=== PATIENT | male | born 1980 | race Hispanic/Latino ===

== ENCOUNTER 2021-08-20 22:35 | Emergency (ER) | payer SELFPAY ==
--- NOTE | 2021-08-20 23:32 | XRay Report ---
LEFT FOOT, 3 VIEWS INDICATION / CLINICAL INFORMATION: left foot injury. COMPARISON: None available. FINDINGS: Is focal soft tissue swelling throughout the dorsum of the foot. I do not see evidence of acute fract ure or dislocation. Degenerative changes are seen throughout the foot. Pes planus is present. IMPRESSION: 1. No acute fracture or dislocation. Dorsal soft tissue swelling. 2. Pes planus. Signer Name: Soraida Rolon MD Signed: 08/20/2021 11:28 PM Workstation Name: [id number]
[2021-08-21] MEDS ORDERED: IBUPROFEN 600 MG TAB PO ONE (02:38)
--- NOTE | 2021-08-21 02:39 | Emergency Department Report ---
ED Lower Extremity HPI - General Chief Complaint: Extremity Injury, Lower Stated Complaint: TOE PAIN Time Seen by Provider: 08/21/21 02:16 Source: patient Mode of arrival: Ambulatory Limitations: No Limitations - History of Present Illness Initial Comments: 41-year-old male was brought to the ER via EMS today with complaints of left foot injury. Patient states that just prior to arrival he was at [facility] on one of the electrical cart. He states that while driving down the aisle, there was a pallet that restricted the size of the aisle but he still tried to go through, he states that his foot got wedged between the electrical cart and the pallet of water. He states that to try to dislodge his foot, he pulled a few times but was unsuccessful and so he then reversed the cart and while doing that he "bent" his left foot. Since then he has been having pain mainly to the dorsal aspect of the foot. He reports associated swelling. He reports no other symptoms at this time. MD Complaint: foot injury -: hour(s) (2) - Related Data Previous Rx's Medication Instructions Recorded Last Taken Type Cyclobenzaprine [Flexeril 10mg] 10 mg PO TID PRN #30 tablet 12/13/13 Unknown Rx HYDROcodone/ACETAMINOPHEN [[place] 1 each PO Q6HR #20 tablet 12/13/13 Unknown Rx 5/325 Tablet] Ibuprofen [Motrin] 600 mg PO Q8H PRN #60 tablet 12/13/13 Unknown Rx Cyclobenzaprine HCl [Flexeril 5 MG 5 mg PO Q8HR PRN #15 tablet 06/23/15 Unknown Rx TAB] traMADoL [Ultram 50 MG tab] 50 mg PO Q6HR PRN #15 tablet 06/23/15 Unknown Rx Ibuprofen [Motrin 800 MG tab] 800 mg PO Q8HR PRN #30 tablet 08/21/21 Unknown Rx Allergies Allergy/AdvReac Type Severity Reaction Status Date / Time seafood Allergy Vomiting Uncoded 12/13/13 03:02 ED Review of Systems ROS: Stated complaint: TOE PAIN Other details as noted in HPI Comment: All other systems reviewed and negative Musculoskeletal: joint swelling, arthralgia ED Past Medical Hx - Past Medical History Previous Medical History?: No - Surgical History Past Surgical History?: Yes Additional Surgical History: hernia repair - Social History Smoking Status: Current Every Day Smoker Substance Use Type: None - Medications Home Medications: Home Medications Medication Instructions Recorded Confirmed Last Taken Type Cyclobenzaprine [Flexeril 10mg] 10 mg PO TID PRN #30 tablet 12/13/13 Unknown Rx HYDROcodone/ACETAMINOPHEN [[place] 1 each PO Q6HR #20 tablet 12/13/13 Unknown Rx 5/325 Tablet] Ibuprofen [Motrin] 600 mg PO Q8H PRN #60 tablet 12/13/13 Unknown Rx Cyclobenzaprine HCl [Flexeril 5 MG 5 mg PO Q8HR PRN #15 tablet 06/23/15 Unknown Rx TAB] traMADoL [Ultram 50 MG tab] 50 mg PO Q6HR PRN #15 tablet 06/23/15 Unknown Rx Ibuprofen [Motrin 800 MG tab] 800 mg PO Q8HR PRN #30 tablet 08/21/21 Unknown Rx ED Physical Exam - General Limitations: No Limitations General appearance: alert, in no apparent distress - Head Head exam: Present: atraumatic, normocephalic, normal inspection - Neck Neck exam: Present: normal inspection, full ROM. Absent: meningismus - Respiratory Respiratory exam: Present: normal lung sounds bilaterally. Absent: respiratory distress, wheezes, rales, rhonchi, stridor - Cardiovascular Cardiovascular Exam: Present: regular rate, normal rhythm, normal heart sounds - Expanded Lower Extremity Exam Left Lower Leg exam: Present: tenderness (Moderate tenderness to the dorsal aspect of the left foot from the 3rd-5th metatarsal), swelling (Moderate swelling noted to foot as well as mild to moderate swelling to the ankle and right lower leg but when compared to the l right patient has similar swelling in similar areas. Patient admits to having swelling to his legs normally), erythema (Chronic appearing erythema noted to the foot, ankle and lower leg of both lower extremities). Absent: abrasion, laceration, ecchymosis, deformity, crepidus, dislocation, palpable cord, Maxim's sign Neuro vascular tendon exam: Absent: pulse deficit, abnormal cap refill, motor deficit, sensory deficit, tendon deficit Gait: Positive: observed and limited by pain - Neurological Exam Neurological exam: Present: alert, oriented X3, CN II-XII intact, normal gait - Psychiatric Psychiatric exam: Present: normal affect, normal mood - Skin Skin exam: Present: intact ED Course Vital Signs 08/20/21 22:43 Temperature 98.4 F Pulse Rate 90 Respiratory 18 Rate Blood Pressure 123/81 O2 Sat by Pulse 100 Oximetry ED Lower Extremity MDM - Radiology Data Radiology results: report reviewed interpreted by me: Patient: NNEKA WONG MR#: [id number] : 1980 Acct:[id number] Age/Sex: 41 / M ADM Date: 08/20/21 Loc: ED Attending Dr: Ordering Physician: REILLY VINCENT MD Date of Service: 08/20/21 Procedure(s): XR foot 3+V LT Accession Number(s): [id number] cc: ED MD MELISA Fluoro Time In Minutes: LEFT FOOT, 3 VIEWS INDICATION / CLINICAL INFORMATION: left foot injury. COMPARISON: None available. FINDINGS: Is focal soft tissue swelling throughout the dorsum of the foot. I do not see evidence of acute fracture or dislocation. Degenerative changes are seen throughout the foot. Pes planus is present. IMPRESSION: 1. No acute fracture or dislocation. Dorsal soft tissue swelling. 2. Pes planus. Signer Name: Soraida Rolon MD Signed: 08/20/2021 11:28 PM Workstation Name: [id number] Transcribed By: JR Dictated By: Soraida Rolon MD Electronically Authenticated By: Soraida Rolon MD Signed Date/Time: 08/20/212327 DD/ 25 TD/TT: Critical care attestation.: If time is entered above; I have spent that time in minutes in the direct care of this critically ill patient, excluding procedure time. ED Disposition Clinical Impression: Foot sprain Disposition: 01 HOME / SELF CARE / HOMELESS Is pt being admited?: No Does the pt Need Aspirin: No Condition: Stable Instructions: Foot Sprain Additional Instructions: I recommend elevating and icing and resting your foot for the next 3 to 4 days. Take the pain medications as prescribed. Follow-up with orthopedic/turf grower if your symptoms persist for another 1 to 2 weeks. Return to the ER if symptoms worsens in any way. Prescriptions: Ibuprofen [Motrin 800 MG tab] 800 mg PO Q8HR PRN #30 tablet PRN Reason: Pain Referrals: SUSANNAH SCHNEIDER DPM [Staff Physician] - 3-5 Days EDENILSON SEE MD [Staff Physician] - 3-5 Days Time of Disposition: 02:38
[2021-08-21 04:29] VITALS: BP 132/70
== END 2021-08-21 03:54 | disposition home or self-care (01) ==
LOC: ED 22:35
DX: S93.692A Other sprain of left foot, initial encounter (principal); F17.200 Nicotine dependence, unspecified, uncomplicated; Z91.013 Allergy to seafood; Z79.899 Other long term (current) drug therapy; X58.XXXA Exposure to other specified factors, initial encounter; Y93.89 Activity, other specified; Y92.89 Other specified places as the place of occurrence of the external cause; Y99.8 Other external cause status
CPT/HCPCS: 99283